=== PATIENT | female | born 1965 | race Caucasian/White ===

== ENCOUNTER 2017-12-29 20:57 | Emergency (ER) | payer OTHER ==
--- NOTE | 2017-12-29 22:13 | ED GENERAL ADULT ---
History of Present Illness General Chief Complaint: General Adult Stated Complaint: R SIDE UPPER BACK TO ABD.PAIN,ENRIQUEZ,"FOGGY" Source: patient Exam Limitations: no limitations Vital Signs & Intake/Output Vital Signs & Intake/Output Vital Signs Date Time Temp Pulse Resp B/P B/P Pulse O2 O2 Flow FiO2 Mean Ox Delivery Rate 12/29 2323 97.8 80 16 146/80 98 Room Air 12/29 2100 97.9 98 19 157/96 97 Room Air Allergies Coded Allergies: NO KNOWN ALLERGIES (06/09/12) Triage Note: PT TO ED WITH C/O RIGHT UPPER BACK PAIN RADIATING TO UNDER RIGHT BREAST X 4 DAYS. NOW REPORTS ALSO EXPERIENCING HEADACHE AND "FOGGY FEELING." Triage Nurses Notes Reviewed? yes HPI: Patient presents for evaluation of "not feeling well". pt states that beginning on Thursday she began having a gradual onset of right flank pain radiating to the right upper quadrant and beneath the right breast. Beginning today she started experiencing a posterior headache with nausea. She denies any associated fever, cold symptoms, vomiting, diarrhea, dysuria, dyspnea, leg swelling or rashes. She likewise denies recent travel or known ill contacts. Past History Travel History Traveled to [place] past 21 day No Medical History Any Pertinent Medical History? see below for history Respiratory: COPD Surgical History Surgical History: non-contributory Psychosocial History What is your primary language Armenian Tobacco Use: Current Daily Use Daily Tobacco Use Amount/Type: => 5 Cigarettes daily Family History Hx Contributory? No Review of Systems Review of Systems Constitutional: Reports: see HPI. EENTM: Reports: no symptoms. Respiratory: Reports: no symptoms. Cardiovascular: Reports: no symptoms. GI: Reports: no symptoms. Genitourinary: Reports: no symptoms. Musculoskeletal: Reports: no symptoms. Skin: Reports: no symptoms. Neurological/Psychological: Reports: no symptoms. Hematologic/Endocrine: Reports: no symptoms. Immunologic/Allergic: Reports: no symptoms. All Other Systems: Reviewed and Negative Physical Exam Physical Exam General Appearance: SEE BELOW Comments: Gen.: Well-nourished, well-developed, no acute respiratory distress. Head: Normocephalic, atraumatic. Eyes: Normal inspection bilaterally Ears: Normal inspection bilaterally Nose: Normal inspection Throat/mouth : Moist mucosa, no oropharyngeal erythema soft tissue swelling or exudates Neck: Supple, full range of motion, no goiter Heart: Regular rate and rhythm, no murmurs rubs or gallops Lungs: Clear to auscultation bilaterally with normal air entry Chest: Nontender Back: Normal range of motion Abdomen: Soft, nontender, nondistended, normal bowel sounds Extremities: Normal range of motion grossly, equal radial pulses, no cyanosis clubbing or edema Neurologic: Cranial nerves grossly intact, speech is clear Skin: warm and dry Psychiatric: Calm, cooperative, no apparent delusions or hallucinations Core Measures ACS in differential dx? No CVA/TIA Diagnosis: No Sepsis Present: No Sepsis Focused Exam Completed? No Progress Differential Diagnoses I considered the following diagnoses in my evaluation of the patient: Anemia, electrolyte abnormality, dehydration, hypoglycemia, hypoxia, thyroid disease Plan of Care: Orders Procedure Date/time Status URINALYSIS 12/29 2212 Complete TSH REFLEX 12/29 2212 Complete LIPASE 12/29 2212 Complete COMPREHENSIVE METABOLIC PANEL 12/29 2212 Complete CBC WITHOUT DIFFERENTIAL 12/29 2212 Complete EKG 12/29 2102 Active Laboratory Tests 12/29/171: Urine Color YEL, Urine Clarity CLEAR, Urine pH 6.5, Ur Specific Buras 1.020, Urine Protein NEG, Urine Ketones NEG, Urine Nitrite NEG, Urine Bilirubin NEG, Urine Urobilinogen 0.2, Ur Leukocyte Esterase NEG, Ur Microscopic EXAM NOT REQUIRED, Urine Hemoglobin NEG, Urine Glucose NEG 12/29/17 2221: Anion Gap 10, Estimated GFR 58 L, BUN/Creatinine Ratio 13.0, Glucose 93, Calcium 9.3, Total Bilirubin 0.2, AST 22, ALT 26, Alkaline Phosphatase 110, Total Protein 7.2, Albumin 3.9, Globulin 3.3, Albumin/Globulin Ratio 1.2, Lipase 177, TSH &T3 &Free T4 Intrp 3.190, CBC w Diff NO MAN DIFF REQ, RBC 4.03 L, MCV 93.8, MCH 31.2 H, MCHC 33.3, RDW 13.5, MPV 8.0, Gran % 46.4, Lymphocytes % 45.0 , Monocytes % 5.0, Eosinophils % 3.2, Basophils % 0.4, Absolute Granulocytes 4.8 , Absolute Lymphocytes 4.7 H, Absolute Monocytes 0.5, Absolute Eosinophils 0.3, Absolute Basophils 0 Initial ED EKG: none Departure Departure Disposition: HOME OR SELF CARE Condition: Stable Clinical Impression Primary Impression: Malaise and fatigue Referrals: Yosi MD,Ismael Pope (PCP/Family) Additional Instructions: Drink lots of fluids. Tylenol or ibuprofen as needed for fever. Follow-up with Dr. Deluca within the next 48 hours for reevaluation. Since the cause of your symptoms is somewhat unclear at this point please return if any concerns or sudden worsening. Please note that there might be incidental findings in your evaluation that are unrelated to the current emergency department visit. Please notify your primary care doctor about this emergency department visit in order to obtain and review all of the testing performed so that these incidental findings can be monitored as needed. If you had an x-ray performed, please understand that some fractures or other findings may not be seen on the initial set of x-rays. If your symptoms persist you might need a repeat set of x-rays to check for such a fracture. If you had a laceration evaluated, please understand that foreign bodies such as glass or wood may not be visible to the naked eye or on plain x-rays. If the wound becomes red, swollen, increasingly more painful or if there is any drainage from the wound, please have it reevaluated by a physician for the possibility of a retained foreign body. If you're unable to follow up as outlined in the discharge instructions please return to the emergency department. Thank you for choosing the Emergency Department for your care. It was a pleasure to serve you today. Willy Rashid M.D. [facility] Departure Forms: Customer Survey General Discharge Information Critical Care Note Critical Care Note Critical Care Time: non-applicable
[2017-12-29 22:30] LABS: ABSOLUTE BASOPHIL COUNT 0 /CUMM (0.0-0.2); ABSOLUTE EOSINOPHIL COUNT 0.3 /CUMM (0.0-0.7); ABSOLUTE GRANULOCYTE CT 4.8 /CUMM (1.4-6.5); ABSOLUTE LYMPH COUNT 4.7 /CUMM (1.2-3.4); ABSOLUTE MONOCYTE COUNT 0.5 /CUMM (0.10-0.60); BASOPHIL % 0.4 % (0.0-2.0); EOSINOPHIL % 3.2 % (0-5); GRANULOCYTE % 46.4 % (42.2-75.2); HEMATOCRIT 37.8 % (37-47); MEAN CORPUSCULAR HGB 31.2 PG (27.0-31.0); MEAN CORPUSCULAR HGB CONC 33.3 G/DL (33.0-37.0); MEAN CORPUSCULAR VOLUME 93.8 FL (81.0-99.0); PLATELET COUNT 344 /CUMM (130-400); RBC DISTRIBUTION WIDTH 13.5 % (11.5-14.5); RED BLOOD CELL CT 4.03 /CUMM (4.20-5.40); WHITE BLOOD CELL COUNT 10.4 /CUMM (4.8-10.8)
[2017-12-29 23:23] VITALS: BP 146/80
== END 2017-12-29 23:39 ==
LOC: ERH 20:57
PROVIDERS: Emergency Medicine
DX: R53.81 Other malaise (principal)
CPT/HCPCS: 81003; 93005; 93010; 96361; 96374; J0131